=== PATIENT | male | born 1995 ===

== ENCOUNTER 2018-08-11 13:12 | Emergency (ER) | payer MEDICAID ==
[2018-08-11 13:19] VITALS: TEMP 97.6
--- NOTE | 2018-08-11 15:25 | ED PDOC ---
HPI: CCC, URI, Sore Throat Time Seen by Provider: 08/11/18 15:15 Chief Complaint (Nursing): Cough, Cold, Congestion Chief Complaint (Provider): Persistent cough History Per: Patient History/Exam Limitations: no limitations Have you had recent travel within the past 21 days to any of the following countries: [place], [place], [place] or [place]?: No Onset/Duration Of Symptoms: Intermittent Episodes, Persistent Current Symptoms Are (Timing): Still Present Location Of Pain: Other Associated Symptoms: Cough, Sputum, Nasal Congestion. denies: Sore Throat, Neck Pain, Sinus Drainage, Myalgias, Vomiting, Diarrhea Additional History Per: Patient Additional Complaint(s): 23yo male, otherwise well, with no past medical history, comes to ER reporting a persistent productive cough, stating he had black sputum production yesterday. Patient states the cough has been ongoing x 1 year and is relieved with cough medications; he states the symptoms returned in the past week. He also reports associated nasal congestion, but denies any fever, chills, throat pain. Pt has seen his PMD regarding this the cough and nasal congestion and told it is due to allergies which he takes medications for but ran out of zyrtec. No chest pain or shortness of breath as well. Patient denies any known sick contacts, recent travels. No additional complaints. PMD: Past Medical History Reviewed: Historical Data, Nursing Documentation, Vital Signs Vital Signs: Last Vital Signs Temp 97.6 F 08/11/18 13:14 Pulse 85 08/11/18 13:14 Resp 18 08/11/18 13:14 BP 149/89 08/11/18 13:14 Pulse Ox 99 08/11/18 13:14 - Medical History PMH: No Chronic Diseases - Surgical History Surgical History: No Surg Hx - Family History Family History: States: No Known Family Hx - Home Medications Home Medications: Ambulatory Orders Medication Instructions Recorded Cetirizine HCl [Zyrtec] 10 mg PO DAILY #30 tab.rapdis 08/11/18 Clotrimazole 1% Cream [Lotrimin 1%] 1 appl TP BID #1 tube 08/11/18 Fluticasone Nasal [Flonase] 1 spr NS TID PRN #1 bottle 08/11/18 - Allergies Allergies/Adverse Reactions: Allergies Allergy/AdvReac Type Severity Reaction Status Date / Time No Known Allergies Allergy Verified 08/11/18 13:14 Review of Systems ROS Statement: Except As Marked, All Systems Reviewed And Found Negative Constitutional: Negative for: Fever, Chills ENT: Positive for: Nose Congestion Cardiovascular: Negative for: Chest Pain Respiratory: Positive for: Cough, Sputum ("black sludge"). Negative for: Shortness of Breath, Hemoptysis Physical Exam - Reviewed Nursing Documentation Reviewed: Yes Vital Signs Reviewed: Yes - Physical Exam Comments: GENERAL APPEARANCE: Patient is awake, alert, oriented x 3, in no acute distress. SKIN: Warm, dry; (-) cyanosis. EYES: (-) conjunctival pallor. ENMT: Mucous membranes moist. Airway patent: (-) stridor. Pharynx: (-) swelling, (-) erythema, (-) exudate. (+) Nasal congestion. NECK: (-) tenderness, (-) stiffness, (-) lymphadenopathy. CHEST AND RESPIRATORY: (-) rhonchi, (-) rales, (-) wheezes, (-) pleural rub; breath sounds equal bilaterally. HEART AND CARDIOVASCULAR: (-) irregularity; (-) murmur, (-) gallop. ABDOMEN AND GI: Soft; (-) tenderness. EXTREMITIES: (-) deformity; (-) edema. NEURO AND PSYCH: Mental status as above. Cranial nerves grossly intact; strength symmetric. - ECG O2 Sat by Pulse Oximetry: 99 (RA) Pulse Ox Interpretation: Normal Medical Decision Making Medical Decision Makiny[place] male with persistent cough, "black sputum" Plan: -- CXR 1650 CXR FINDINGS: LUNGS: No active pulmonary disease. PLEURA: No significant pleural effusion identified. No pneumothorax apparent. CARDIOVASCULAR: No aortic atherosclerotic calcification present. Normal cardiac size. No pulmonary vascular congestion. OSSEOUS STRUCTURES: No significant abnormalities. VISUALIZED UPPER ABDOMEN: Normal. OTHER FINDINGS: None. IMPRESSION: No active disease. 1700 Patient now reporting redness, irritation to the tip of his penis; states the symptoms have been present x 1 month. States symptoms improved but worsened with sexual intercourse. States single partner, does not use protection, does not w jodi to be tested for STI He thinks the symptoms are due to a scratch on that area. Otherwise no urethral discharge, dysuria, or hematuria, testicular pain or swelling. On exam, uncircumcised male; (+) mild erythema and dry skin under glans of penis; no vesicles, discharge, signs of infection, no testicular tenderness or swelling (exam chaperoned by male RN) Patient to be discharged home; instructed to take medication as prescribed and to follow up with PMD in 2-3 days. Return precautions given. Discussed results, diagnosis, treatment, return precautions and f/u with pt who is understanding in agreement and stable for dc Scribe Attestation: Documented by Sabra Garcia, acting as a scribe for EDILBERTO Arrington Provider Scribe Attestation: All medical record entries made by the Scribe were at my direction and personally dictated by me. I have reviewed the chart and agree that the record accurately reflects my personal performance of the history, physical exam, medical decision making, and the department course for this patient. I have also personally directed, reviewed, and agree with the discharge instructions and disposition. Disposition - Clinical Impression Clinical Impression: Cough, Balanitis - Disposition Referrals: your, doctor [Other] Palmer Rdz MD [Staff Provider] - Disposition: Routine/Home Disposition Time: 15:00 Condition: STABLE Additional Instructions: Return to ED for new or worsening symptoms, fever >100.4, chest pain, difficulty breathing, urinary symptoms, urethral discharge or testicular pain. Follow up with your primary care doctor and an ENT specialist as listed. Take medications as prescribed Prescriptions: Cetirizine HCl [Zyrtec] 10 mg PO DAILY #30 tab.rapdis Clotrimazole 1% Cream [Lotrimin 1%] 1 appl TP BID #1 tube Fluticasone Nasal [Flonase] 1 spr NS TID PRN #1 bottle PRN Reason: Nasal Congestion Instructions: Cough in Adults, Balanitis Forms: [employer] ([place]), [facility] ED School/Work Excuse Print Language: [place]ESE
--- NOTE | 2018-08-11 16:17 | RAD ---
Date of service: 08/11/2018 HISTORY: cough, black mucus COMPARISON: No prior. TECHNIQUE: Chest PA and lateral views FINDINGS: LUNGS: No active pulmonary disease. PLEURA: No significant pleural effusion identified. No pneumothorax apparent. CARDIOVASCULAR: No aortic atherosclerotic calcification present. Normal cardiac size. No pulmonary vascular congestion. OSSEOUS STRUCTURES: No significant abnormalities. VISUALIZED UPPER ABDOMEN: Normal. OTHER FINDINGS: None. IMPRESSION: No active disease.
[2018-08-11 17:21] VITALS: BP 120/76; PULSE 78; RESP 19
[2018-08-11 17:28] VITALS: O2SAT 99
== END 2018-08-11 17:21 | disposition home or self-care (01) ==
LOC: H.ER 13:12
DX: R05 Cough (principal); N48.1 Balanitis